=== PATIENT | male | born 2005 | race Caucasian/White ===

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

== ENCOUNTER 2024-06-08 15:56 | Emergency (ER) | payer OTHER, SELFPAY ==
--- NOTE | ~2024-06-08 | XR_ITS ---
EXAMINATION: XR abdomen/kub 1V DATE: 06/08/2024 16:35 INDICATION: Mid abdominal pain. TECHNIQUE: A supine view of the abdomen on 2 radiographs was obtained. COMPARISON: None. FINDINGS: There are no dilated loops of small bowel. The colon is normal in caliber. IMPRESSION: 1. Dilated small bowel, consistent with adynamic ileus versus small bowel obstruction. Reviewed, dictated and finalized at location A. IMPRESSION: 1. Dilated small bowel, consistent with adynamic ileus versus small bowel obstr uction.
--- NOTE | ~2024-06-08 | CT_ITS ---
EXAMINATION: CT abdomen pelvis w con DATE: 06/08/2024 18:16 INDICATION: r/o SBO TECHNIQUE: Computed tomography (CT) of the abdomen and pelvis was performed with 100 mL Omnipaque-350 intravenous contrast. Automated exposure control and iterative reconstruction technique were employe d. The dose-length product was 1656.98 mGy-cm. COMPARISON: X-ray abdomen, same date. FINDINGS: Lower thorax: Unremarkable Liver: Normal. Biliary/Gallbladder: Gallbladder is normal. No bile duct dilation. Pancreas: No mass or duct dilation. Spleen: Normal. Adrenals:No mass. Kidneys: No suspicious mass, obstructing stone, or hydronephrosis. Multiple right renal cysts and sub centimeter hypodensities too small to characterize but also likely represent cysts. GI tract: Multiple loops of mildly dilated small bowel in the upper abdomen, no wall thickening, no o bstructing mass, no specific transition point. No large bowel dilation. Normal appendix. Mesentery/Peritoneum: No ascites, mass, or free air. Retroperitoneum: No mass. Pelvis: Pelvic organs are within normal limits. Soft Tissues: Soft tissues and body wall unremarkable. Bones: No acute osseous finding. T10 hemangioma. IMPRESSION: Multiple loops of mildly dilated small bowel in the upper abdomen, most likely representing ileus. Ea rly obstruction is not excluded. Otherwise unremarkable CT abdomen and pelvis findings. Reviewed, dictated and finalized at location K. IMPRESSION: Multiple loops of mildly dilated small bowel in the upper abdomen, most likely representing ileus. Early obstruction is not excluded. Otherwise unremarkable CT abdomen and pelvis findings.
[2024-06-08 16:12] VITALS: BP 136/80; PULSE 89; RESP 18; TEMP 36.3; O2SAT 98
--- NOTE | 2024-06-08 16:16 | ED.ABDPAIN ---
HPI - Abdominal Pain General Chief Complaint: Abdominal Pain <Sheryl Bingham APRN - Last Filed: 06/08/24 16:19> Stated Complaint: R sided abd pain sent by for CT <Sheryl Bingham APRN - Last Filed: 06/08/24 16:19> Time Seen by Provider: 06/08/24 16:10 <Sheryl Bingham APRN - Last Filed: 06/08/24 16:19> Focused HPI:Patient is a 18-year-old male who presents to the ER with complaints of right-sided flank pain and right upper quadrant abdominal pain. He was seen at urgent care earlier today and they advised him to come to the ER for CT scan. He has a history recent use of a generic brand of Ozempic. Patient denies any history asthma, high blood pressure. He denies chest pain and nausea. Patient reports his pain increases with movement. He reports he has a primary care doctor in [place] home he has not seen in years. GENERAL: Well-appearing, well-nourished, and in no acute distress. HEAD: Normocephalic, atraumatic. CHEST: Clear to auscultation. ?No respiratory distress. HEART: Regular rate and rhythm.? NEURO: ?Alert and oriented x3. Patient screened in triage and initial orders placed.? ?Additional care and disposition to be based upon?diagnostic testing and treatment. <Sheryl Bingham APRN - Last Filed: 06/08/24 16:19> Related Data Allergies/Adverse Reactions: Allergies Allergy/AdvReac Type Severity Reaction Status Date / Time No Known Allergies Allergy Verified 06/08/24 15:57 <Sheryl Bingham APRN - Last Filed: 06/08/24 16:19> Review of Systems Review of Systems: CONSTITUTIONAL: Denies fever GASTROINTESTINAL: Reports abdominal pain, nausea, vomiting GENITOURINARY: Denies dysuria <Maral Boucher PA-C - Last Filed: 06/08/24 19:49> All systems reviewed & are unremarkable except as noted in HPI and below <Maral Boucher PA-C - Last Filed: 06/08/24 19:49> PMFSH Past Medical History Medical History: Medical History (Updated 06/08/24 @ 19:41 by Maral Boucher PA-C) No active medical problems <Sheryl Bingham APRN - Last Filed: 06/08/24 16:19> Social History Social History: Social History (Updated 06/08/24 @ 19:38 by Maral Boucher PA-C) Substance use: never <Sheryl Bingham APRN - Last Filed: 06/08/24 16:19> Exam Narrative: GENERAL: Well-appearing, well-nourished, and in no acute distress. HEAD: Normocephalic, atraumatic. EYES: EOMI. CHEST: Clear to auscultation. No respiratory distress. No wheezes rales or rhonchi HEART: Regular rate and rhythm. No murmur heard. Normal peripheral pulses. ABDOMEN: Soft, nontender, nondistended, normal active bowel sounds. EXTREMITIES: Normal range of motion. No edema. SKIN: Warm, dry, no rash. NEURO: No focal deficits. Alert and oriented x3. PSYCH: Normal mood and affect <Maral Boucher PA-C - Last Filed: 06/08/24 19:49> Course Course Emergency Course: patient updated on workup and agrees with plan of care <Maral Boucher PA-C - Last Filed: 06/08/24 19:49> Consultations Consultation #1: Spoke with Dr. Crews about patient and workup. Agrees symptoms are likely due to Ozempic. He should continue to improve without intervention <Maral Boucher PA-C - Last Filed: 06/08/24 19:49> Date: 06/08/24 <Maral Boucher PA-C - Last Filed: 06/08/24 19:49> Vital Signs Vital signs: Vital Signs Temperature 97.3 F L 06/08/24 16:12 Pulse Rate 89 06/08/24 16:12 Respiratory Rate 18 06/08/24 16:12 Blood Pressure 136/80 06/08/24 16:12 Pulse Oximetry 98 06/08/24 16:12 Temperature 97.3 F L 06/08/24 16:12 Pulse Rate 88 06/08/24 18:19 Respiratory Rate 18 06/08/24 18:19 Blood Pressure 118/57 L 06/08/24 18:19 Pulse Oximetry 100 06/08/24 18:19 <Sheryl Bingham, SCHOOL PH[employer]GR[employer]HS DETAILER - Last Filed: 06/08/24 16:19> Vital Signs Temperature 97.3 F L 06/08/24 16:12 Pulse Rate 89 06/08/24 16:12 Respiratory Rate 18 06/08/24 16:12 Bl
[2024-06-08] MEDS: FAMOTIDINE 20 MG/2 ML VIAL IV PUSH (16:59)
[2024-06-08] MEDS: PANTOPRAZOLE SODIUM IV 40 MG VIAL IV PUSH (16:59)
[2024-06-08 17:02] LABS: Add Urine Microscopic? NO; Appearance Urine Clear (Clear); Basophils Absolute Auto 0.1 K/mm3 (0.0-0.1); Basophils Percent Auto 0.5 % (0.2-1.2); Bilirubin Urine Negative (Negative); Blood Urine Negative (Negative); Color Urine Yellow (Yellow); Eosinophils Absolute Auto 0.4 K/mm3 (0-0.3); Eosinophils Percent Auto 4.4 % (0-4.4); Glucose Urine UA Negative (Negative); Hematocrit 44.3 % (42.0-52.0); Hemoglobin 14.6 g/dL (14.0-18.0); Immature Granulocyte Absolute 0.02 K/mm3 (0.00-0.031); Immature Granulocyte Percent A 0.2 % (0-0.5); Ketones Urine Negative (Negative); Leukocyte Esterase Ur Negative LEU/UL (Negative); Lymphocytes Percent Auto 20.6 % (18.3-44.2); Mean Corpuscular Hemoglobin 27.4 pg (26-34); Mean Corpuscular Volume 83.3 fl (80-100); Mean Platelet Volume 11.2 fl (7.4-10.4); Monocytes Absolute Auto 0.8 K/mm3 (0.1-0.6); Monocytes Percent Auto 7.8 % (2.6-8.5); Neutrophils Absolute Auto 6.5 K/mm3 (1.3-6.7); Neutrophils Percent Auto 66.5 % (45.5-73.1); Nitrate Urine Negative (Negative); Platelet Count Result 278 k/mm3 (150-375); Protein Urine Negative (Negative); Red Blood Count 5.32 M/mm3 (4.6-6.20); Red Cell Distribution Width 13.1 % (11.5-14.5); Specific Grav Ur 1.024 (1.001-1.035); Urobilinogen Urine 0.2 mg/dL (<2.0); White Blood Count 9.7 K/mm3 (4.5-10.0); pH Urine 5.5 (5.0-9.0)
[2024-06-08 17:19] LABS: Alanine Aminotransferase 41 U/L (6-50); Albumin Level 4.6 g/dL (3.7-5.6); Alkaline Phosphatase 90 U/L (58-237); Anion Gap 11 mmol/L (4-12); Aspartate Amino Transferase 28 U/L (17-59); Bilirubin,Total 0.6 mg/dL (0.2-1.3); Blood Urea Nitrogen 9 mg/dL (8-21); Calcium 9.8 mg/dL (8.9-10.7); Carbon Dioxide 26 mmol/L (22-30); Chloride 101 mmol/L (98-107); Estimated CRCL calculation 172 ml/min; Estimated Glomerular Filt Rate > 60; Glucose 89 mg/dL (65-110); Lipase 51 U/L (23-300); Potassium 4.5 mmol/L (3.4-5.0); Sodium 138 mmol/L (134-143)
[2024-06-08] MEDS: SODIUM CHLORIDE 0.9% IV 1,000 ML 999 ML IV CONT (18:15)
[2024-06-08 18:19] VITALS: BP 118/57; PULSE 88; RESP 18; O2SAT 100
[2024-06-08 19:53] VITALS: BP 126/32; PULSE 84; RESP 16; O2SAT 100
== END 2024-06-08 20:03 | disposition home or self-care (01) ==
PROVIDERS: Registered Nurse; Emergency Provider Physician Assistant
DX: K56.7 Ileus, unspecified (principal); R10.13 Epigastric pain; Z79.85 Long-term (current) use of injectable non-insulin antidiabetic drugs
CPT/HCPCS: 36415; 74018; 74177; 80053; 81003; 83690; 85025; 96361; 96374; 96375; 99284; J2470; J7030; Q9967

== ENCOUNTER 2025-07-20 13:19 | Emergency (ER) | payer OTHER, BC, SELFPAY ==
--- NOTE | 2025-07-20 13:22 | ED_ITS ---
HPI - Wound/Laceration General Chief Complaint: Wound/Laceration Stated Complaint: FINGER LACERATION Source: patient and RN notes reviewed Mode of arrival: ambulatory Limitations: no limitations History of Present Illness HPI narrative: Patient is a 19-year-old male who presents to the [facility] with complaints of laceration to his right 2nd finger. Patient presents with a 2 cm laceration to the proximal phalanx on the dorsal aspect of his right 2nd finger. Bleeding is controlled. Patient states that his tetanus is up-to-date. Patient states that he was cleaning a knife and he used for his meal when he accidentally cut himself. Distal neurovascular and motor status intact. Cap refill is normal. Related Data Allergies Allergy/AdvReac Type Severity Reaction Status Date / Time No Known Allergies Allergy Verified 07/20/25 13:30 Review of Systems Review of Systems: CONSTITUTIONAL: Denies fever, chills, or sweats. EYES: Denies visual changes, redness, or discharge. ENT: Denies otalgia and sore throat CARDIOVASCULAR: Denies chest pain, palpitations, or edema. RESPIRATORY: Denies cough or dyspnea. GASTROINTESTINAL: Denies abdominal pain, nausea, vomiting, or diarrhea. GENITOURINARY: Denies dysuria or hematuria. SKIN: Reports laceration to the right 2nd finger. MUSCULOSKELETAL: Denies back pain, joint pain, or myalgia. NEUROLOGIC: Denies headache, numbness, or weakness. Pertinent positives per HPI. PMFSH Past Medical History Medical History No active medical problems Social History Social History Substance use: never Comments At the time of my signature, I reviewed and agree with the nursing past medical, surgical, social, and family history. There is no relevant family history pertinent to the patient complaint. Exam Narrative: GENERAL: This is a well-nourished, well-developed patient, in no apparent distress. HEAD: normocephalic, atraumatic. EYES: PERRL. Sclera clear/white. Vision is grossly intact. EARS: External ears normal, auditory canals clear and without drainage, TMs normal without perforation. Hearing grossly intact. NOSE: External nose normal with no obvious nasal discharge, nares without redness, no rhinorrhea. THROAT: Mucous membranes moist, posterior pharynx clear. NECK: Neck supple, non-tender without lymphadenopathy, masses or thyromegaly. CARDIOVASCULAR: Regular rate and rhythm without murmurs, gallops, or rubs. RESPIRATORY: Clear to auscultation. Breath sounds equal bilaterally. No wheezes, rales, or rhonchi. GASTROINTESTINAL: Abdomen soft, non-tender, nondistended. Bowel sounds are active. No hepato-splenomegaly, or palpable masses. No guarding. SKIN: 2 cm laceration to the proximal phalanx the dorsal aspect of the right 2nd finger. Bleeding controlled. Distal neurovascular motor status intact. Cap refill is normal. Patient has normal range of motion of the right 2nd finger. NEURO: awake, alert, and oriented to person, place and time. There were no obvious focal neurologic abnormalities. EXTREMITIES: No clubbing, cyanosis, or edema. No joint tenderness, effusion, or edema noted. BACK: Nontender without deformity or crepitance. No flank tenderness. Course Course Level of Care: Express Care Visit Vital Signs Vital signs: Vital Signs Temperature 98.5 F 07/20/25 13:33 Pulse Rate 93 07/20/25 13:33 Respiratory Rate 16 07/20/25 13:33 Blood Pressure 138/86 07/20/25 13:33 Pulse Oximetry 100 07/20/25 13:33 Temperature 98.5 F 07/20/25 13:33 Pulse Rate 93 07/20/25 13:33 Respiratory Rate 16 07/20/25 13:33 Blood Pressure 138/86 07/20/25 13:33 Pulse Oximetry 100 07/20/25 13:33 Reviewed Procedures Laceration Laceration 1: Date: 07/20/25 Time: 13:48 Site: upper extremity Side (If applicable): right Size (cm): 2 Description: linear Depth: simple, single layer Local Anesthetic: none Pre-repair: irrigated ====== Skin Level ====== Skin layer closed with: dermabond ====== Subcutaneous Layer ====== ====== Muscle Layer ====== ====== Tendon Layer ====== MDM - Wound/Laceration MDM Narrative Medical decision making narrative: Laceration repaired with skin adhesive. Wound care instructions reviewed with patient who verbalized understanding. -adhesive works like a bandage; do not use antibiotic ointment as it can break down the adhesive -You can shower while the adhesive is on your skin, but do not take a bath or soak or scrub the area for 7-10 days. Dry your skin by patting it gently with a towel. -The adhesive will peel off on its own; usually by 5-10days. If after 10 days, you still have adhesive on you, you can use antibiotic ointment or petroleum jelly to get it off. After you heal, you should protect the scar from the sun. Use sunscreen on the area or wear clothes or a hat that covers the scar. Follow up with your PCP is needed Differential Diagnosis Differential diagnosis: Likely laceration, abrasion and avulsion of skin Critical Care Time Critical Care Time Critical Care Time: No Discharge Plan Discharge Clinical Impression: Laceration of finger of right hand Patient Disposition: Home Condition: Stable Instructions: Laceration (ED), Skin Adhesive Care (ED) Additional Instructions: -adhesive works like a bandage; do not use antibiotic ointment as it can break down the adhesive -You can shower while the adhesive is on your skin, but do not take a bath or soak or scrub the area for 7-10 days. Dry your skin by patting it gently with a towel. -The adhesive will peel off on its own; usually by 5-10days. If after 10 days, you still have adhesive on you, you can use antibiotic ointment or petroleum jelly to get it off. After you heal, you should protect the scar from the sun. Use sunscreen on the area or wear clothes or a hat that covers the scar. Follow up with your PCP is needed Patient Language: Macedonian Follow-up/Referrals: UNKNOWN,DOCTOR [Non-Staff] Time of Disposition: 13:50
[2025-07-20 13:33] VITALS: BP 138/86; PULSE 93; RESP 16; TEMP 36.9; O2SAT 100
== END 2025-07-20 13:56 | disposition home or self-care (01) ==
PROVIDERS: Emergency Provider Nurse Practitioner
DX: S61.210A Laceration without foreign body of right index finger without damage to nail, initial encounter (principal); X58.XXXA Exposure to other specified factors, initial encounter
CPT/HCPCS: 29130; 99212; G0463

== ENCOUNTER 2025-07-21 11:58 | Emergency (ER) | payer OTHER, BC, SELFPAY ==
[2025-07-21 12:11] VITALS: BP 132/73; PULSE 89; RESP 18; TEMP 36.6; O2SAT 99
--- NOTE | 2025-07-21 12:28 | ED.WOUNDLAC ---
HPI - Wound/Laceration General Chief Complaint: Wound/Laceration Stated Complaint: Cut Finger Time Seen by Provider: 07/21/25 12:28 Source: patient Mode of arrival: ambulatory Limitations: no limitations History of Present Illness HPI narrative: 19 yo M presents for wound check. Was seen [facility] for finger laceration. had skin adhesive placed. States that wound keeps opening up and bleeding. wanting sutures. All systems reviewed and negative except as noted above. Related Data Allergies Allergy/AdvReac Type Severity Reaction Status Date / Time No Known Allergies Allergy Verified 07/20/25 13:30 [facility] Past Medical History Medical History No active medical problems Social History Social History Substance use: never Comments At time of signature, agree with nursing past medical, surgical, social and family history. There is no relevant family history pertinent to the presenting complaint. Exam Narrative: GENERAL: This is a well-nourished, well-developed patient, in no apparent distress. HEAD: normocephalic, atraumatic. EYES: PERRL. Sclera clear/white. Vision is grossly intact. EARS: External ears normal NOSE: External nose normal NECK: Neck supple, non-tender without lymphadenopathy, masses or thyromegaly. CARDIOVASCULAR: Regular rate and rhythm without murmurs, gallops, or rubs. RESPIRATORY: Clear to auscultation. Breath sounds equal bilaterally. No wheezes, rales, or rhonchi. SKIN: warm, Dry, intact with no suspicious lesions or rash, good texture and turgor. skin adhesive noted to proximal phalanx of R index finger. no bleeding noted. NEURO: awake, alert, and oriented to person, place and time. There were no obvious focal neurologic abnormalities. EXTREMITIES: No joint tenderness, effusion, or edema noted. Course Course Level of Care: [facility] Visit Vital Signs Vital signs: Vital Signs Temperature 36.6 C 07/21/25 12:11 Pulse Rate 89 07/21/25 12:11 Respiratory Rate 18 07/21/25 12:11 Blood Pressure 132/73 07/21/25 12:11 Pulse Oximetry 99 07/21/25 12:11 Temperature 36.6 C 07/21/25 12:11 Pulse Rate 89 07/21/25 12:11 Respiratory Rate 18 07/21/25 12:11 Blood Pressure 132/73 07/21/25 12:11 Pulse Oximetry 99 07/21/25 12:11 reviewed MDM - Wound/Laceration MDM Narrative Medical decision making narrative: skin adhesive intact to R index finger. no active bleeding. placed in finger splint to stabilize finger and avoid reopening wound. Discharge Plan Discharge Clinical Impression: Laceration of right index finger Patient Disposition: Home Condition: Stable Instructions: Finger Laceration (ED) Additional Instructions: No bleeding was noted to your laceration today. Unfortunately we do not want to remove skin adhesive as this would be traumatic to the soft tissues and reopen your wound. Wear finger splint and keep a dressing over laeration while at work. Patient Language: [place] Citizen Follow-up/Referrals: PHYSICIAN,TELECOMMUNICATIONS CLERK [Primary Care Provider, Internal Medicine] Time of Disposition: 12:41
== END 2025-07-21 12:50 | disposition home or self-care (01) ==
PROVIDERS: Emergency Provider Nurse Practitioner Family
DX: S61.210A Laceration without foreign body of right index finger without damage to nail, initial encounter (principal); X58.XXXA Exposure to other specified factors, initial encounter
CPT/HCPCS: 29130; 99212; G0463